=== PATIENT | female | born 1970 | race Caucasian/White ===

== ENCOUNTER 2022-05-06 08:57 | Outpatient (CLI) | payer BC | END 2022-05-06 08:58 | disposition home or self-care (01) | LOC: RAD 08:57 | PROVIDERS: ATTEND Surgery | DX: K21.9 Gastro-esophageal reflux disease without esophagitis (principal) | CPT/HCPCS: 74220 ==

== ENCOUNTER 2022-05-18 15:12 | Outpatient (CLI) | payer BC | END 2022-05-18 15:13 | disposition home or self-care (01) | LOC: DTY/OP 15:12 | PROVIDERS: ATTEND Surgery | DX: E66.01 Morbid (severe) obesity due to excess calories (principal) | CPT/HCPCS: 97802 ==

== ENCOUNTER 2023-04-22 12:35 | Inpatient (IN) | payer BC ==
[2023-04-22] MEDS ORDERED: Acetaminophen 325 MG TAB PO PRN (15:37)
[2023-04-22] MEDS ORDERED: Ondansetron PF 4 MG/2 ML Vial IVP PRN (15:37)
[2023-04-22] MEDS: Sodium Chloride 0.9% 1,000 ML IV SCH (16:19)
[2023-04-22] MEDS ORDERED: Glucagon 1 MG/ML KIT IM PRN (19:15)
[2023-04-22] MEDS ORDERED: Dextrose 5% in Water 1,000 ML IV PRN (19:15)
[2023-04-22] MEDS ORDERED: Dextrose 50% Abboject 50 ML SYRINGE IVP PRN (19:15)
[2023-04-22 19:32] VITALS: BMI 46.0
[2023-04-22] MEDS: HumaLOG 300 UNITS/3 ML VIAL SC PRN ×2 (19:45→21:37)
[2023-04-23] MEDS: Sodium Chloride 0.9% 1,000 ML IV SCH ×2 (01:35→17:58)
[2023-04-23 05:40] LABS: #Monocytes 0.8 thou/uL (0.11-0.59); #Neutrophils 8.6 thou/uL (1.40-6.50); %Basophils 0.1 % (0.0-1.0); %Eosinophils 0.1 % (0.0-10.0); %Lymphocytes 12.4 % (21.0-51.0); %Monocytes 7.6 % (0.0-10.0); %Neutrophils 79.4 % (42.0-75.0); Hemoglobin 13.6 g/dL (12.0-16.0); Mean Corpuscular HGB CONC 32.6 g/dL (32.0-36.0); Mean Corpuscular Hemoglobin 29.2 pg (27.0-31.0); Mean Corpuscular Volume 89.7 fl (78.0-98.0); Mean Platelet Volume 11.1 fL (7.4-10.4); Platelet Count 157 10x3/uL (130-400); RBC Distribution Width 13.1 % (11.5-14.5); Red Blood Cell (RBC) Count 4.65 mill/uL (4.20-5.40); White Blood Cell (WBC) Count 10.8 10x3/uL (4.8-10.8)
[2023-04-23 06:07] LABS: Anion Gap 9 mmol/L (10-20); BUN (Urea Nitrogen) 18 mg/dL (9.8-20.1); Calc. Creatinine Clearance 149 mL/min (70-130); Calcium 8.7 mg/dL (7.8-10.44); Carbon Dioxide 25 mmol/L (22-29); Chloride 110 mmol/L (98-107); Estimated GFR 89; Glucose 194 mg/dL (70-105); Potassium 4.3 mmol/L (3.5-5.1); Sodium 140 mmol/L (136-145)
[2023-04-23] MEDS: HumaLOG 300 UNITS/3 ML VIAL SC PRN ×5 (06:26→20:32)
[2023-04-23] MEDS ORDERED: Nitroglycerin 0.4 MG TAB (25 Tab Bottle) ONE (10:50)
[2023-04-23 10:58] LABS: Hemoglobin A1c 9.1 % (4.0-6.0)
[2023-04-23] MEDS: Azithromycin 500 MG in Sodium Chloride 0.9% 250 ML 250 ML IVPB SCH (11:00)
[2023-04-23] MEDS ORDERED: Ipratropium/Albuterol 3 ML NEB EZPAP SCH (11:13)
[2023-04-23] MEDS ORDERED: Insulin Glargine 30 UNITS/0.3 ML VIAL SC SCH (11:15)
[2023-04-23] MEDS ORDERED: Magnesium Sulfate In Water 4 GM in Premix Bag 1 BAG IVPB SCH (11:30)
[2023-04-23] MEDS: methylPREDNISolone Sod Succ 40 MG VIAL IVP SCH ×2 (12:03→17:58)
[2023-04-23] MEDS: cefTRIAXone\\ROCEPHIN 1 GM in Sodium Chloride 0.9% 100 ML IVPB SCH (12:10)
[2023-04-23] MEDS ORDERED: guaiFENesin ER 600 MG TAB PO SCH (12:48)
[2023-04-23] MEDS ORDERED: Benzonatate 100 MG CAP PO SCH (12:48)
[2023-04-23] MEDS: Ipratropium/Albuterol 3 ML NEB EZPAP SCH ×3 (13:49→21:39)
[2023-04-23] MEDS: guaiFENesin ER 600 MG TAB PO SCH ×2 (20:32→20:43)
[2023-04-23] MEDS: Benzonatate 100 MG CAP PO SCH (20:32)
[2023-04-24] MEDS: Sodium Chloride 0.9% 1,000 ML IV SCH ×2 (00:01→00:51)
[2023-04-24] MEDS: methylPREDNISolone Sod Succ 40 MG VIAL IVP SCH ×5 (00:12→23:40)
[2023-04-24] MEDS: Ipratropium/Albuterol 3 ML NEB EZPAP SCH ×6 (02:16→23:28)
[2023-04-24] MEDS: HumaLOG 300 UNITS/3 ML VIAL SC PRN ×3 (05:49→17:12)
[2023-04-24] MEDS ORDERED: Insulin Glargine 30 UNITS/0.3 ML VIAL SC SCH ×2 (09:00→15:38)
[2023-04-24] MEDS: Benzonatate 100 MG CAP PO SCH ×3 (09:13→21:00)
[2023-04-24] MEDS: guaiFENesin ER 600 MG TAB PO SCH ×3 (09:14→21:00)
[2023-04-24] MEDS: Azithromycin 500 MG in Sodium Chloride 0.9% 250 ML 250 ML IVPB SCH (11:37)
[2023-04-24] MEDS: cefTRIAXone\\ROCEPHIN 1 GM in Sodium Chloride 0.9% 100 ML IVPB SCH (13:07)
[2023-04-24] MEDS ORDERED: Dextrose 50% Abboject 50 ML SYRINGE SLOW IVP PRN (15:38)
[2023-04-24] MEDS ORDERED: HumaLOG 300 UNITS/3 ML VIAL SC PRN (15:38)
[2023-04-24] MEDS ORDERED: Glucagon 1 MG/ML KIT IM PRN (15:38)
[2023-04-24] MEDS ORDERED: Dextrose 5% in Water 1,000 ML IV PRN (15:38)
[2023-04-24] MEDS: Heparin 5,000 UNITS/ML VIAL SC SCH (20:59)
[2023-04-25] MEDS: Ipratropium/Albuterol 3 ML NEB EZPAP SCH ×3 (02:32→11:53)
[2023-04-25 05:45] LABS: #Monocytes 0.3 thou/uL (0.11-0.59); #Neutrophils 8.5 thou/uL (1.40-6.50); %Basophils 0.1 % (0.0-1.0); %Lymphocytes 8.7 % (21.0-51.0); %Monocytes 2.7 % (0.0-10.0); %Neutrophils 86.8 % (42.0-75.0); Hemoglobin 13.4 g/dL (12.0-16.0); Mean Corpuscular HGB CONC 32.3 g/dL (32.0-36.0); Mean Corpuscular Hemoglobin 29.2 pg (27.0-31.0); Mean Corpuscular Volume 90.4 fl (78.0-98.0); Mean Platelet Volume 11.4 fL (7.4-10.4); Platelet Count 177 10x3/uL (130-400); RBC Distribution Width 13.3 % (11.5-14.5); Red Blood Cell (RBC) Count 4.59 mill/uL (4.20-5.40); White Blood Cell (WBC) Count 9.8 10x3/uL (4.8-10.8)
[2023-04-25 06:06] LABS: Anion Gap 13 mmol/L (10-20); BUN (Urea Nitrogen) 18 mg/dL (9.8-20.1); Calc. Creatinine Clearance 149 mL/min (70-130); Calcium 8.8 mg/dL (7.8-10.44); Carbon Dioxide 22 mmol/L (22-29); Chloride 105 mmol/L (98-107); Estimated GFR 89; Glucose 257 mg/dL (70-105); Potassium 4.4 mmol/L (3.5-5.1); Sodium 136 mmol/L (136-145)
[2023-04-25] MEDS: HumaLOG 300 UNITS/3 ML VIAL SC PRN (06:10)
[2023-04-25] MEDS: methylPREDNISolone Sod Succ 40 MG VIAL IVP SCH ×2 (06:10→12:20)
[2023-04-25] MEDS ORDERED: Insulin Glargine 30 UNITS/0.3 ML VIAL SC SCH (09:00)
[2023-04-25] MEDS: guaiFENesin ER 600 MG TAB PO SCH (09:56)
[2023-04-25] MEDS: Heparin 5,000 UNITS/ML VIAL SC SCH (09:56)
[2023-04-25] MEDS: Benzonatate 100 MG CAP PO SCH (09:56)
[2023-04-25] MEDS: Azithromycin 500 MG in Sodium Chloride 0.9% 250 ML 250 ML IVPB SCH (09:57)
[2023-04-25] MEDS: cefTRIAXone\\ROCEPHIN 1 GM in Sodium Chloride 0.9% 100 ML IVPB SCH (12:20)
[2023-04-25 15:49] VITALS: BP 125/73; TEMP 98.2
== END 2023-04-25 17:37 | disposition home or self-care (01) | DRG 202 ==
LOC: SJJU 12:35
PROVIDERS: ADMIT Internal Medicine; ATTEND Emergency Medicine
DX: J45.901 Unspecified asthma with (acute) exacerbation (principal); J18.0 Bronchopneumonia, unspecified organism; Z68.42 Body mass index [BMI] 45.0-49.9, adult; E11.9 Type 2 diabetes mellitus without complications; E66.01 Morbid (severe) obesity due to excess calories; R91.8 Other nonspecific abnormal finding of lung field
CPT/HCPCS: 36415; 36416; 71045; 80048; 83036; 85025; 87070; 87205; 87804; 94640; J0456; J0696; J1644; J1650; J1815; J2920; J3475; J3490; J7050; J7620

== ENCOUNTER 2023-05-16 12:32 | Outpatient (CLI) | payer BC | END 2023-05-16 12:33 | disposition home or self-care (01) | LOC: RAD 12:32 | PROVIDERS: ATTEND Internal Medicine Critical Care Medicine | DX: R06.00 Dyspnea, unspecified (principal); R91.1 Solitary pulmonary nodule | CPT/HCPCS: 71046 ==

== ENCOUNTER → 2023-05-26 | Outpatient (CLI) | payer BC | LOC: PET 08:00 | PROVIDERS: ATTEND Internal Medicine Critical Care Medicine | DX: R91.8 Other nonspecific abnormal finding of lung field (principal) | CPT/HCPCS: 78815; A9552 ==